=== PATIENT | male | born 1990 | race Caucasian/White ===

== ENCOUNTER 2020-02-26 09:46 | Inpatient (IN) | payer MEDICAID ==
[~2020-02-26] VITALS: Ht 167.6 cm; Wt 83.0 kg
[2020-02-26 10:51] LABS: ANION GAP 11.2 mmol/L (8-16); CALCIUM 9.8 mg/dL (8.5-10.1); CARBON DIOXIDE 29.5 mmol/L (21.0-32.0); CREATININE - SERUM 1.3 mg/dL (0.6-1.3); POTASSIUM - SERUM 4.7 mmol/L (3.5-5.1)
[2020-02-26 10:53] LABS: BASOPHILS 0.1 % (0-2); EOSINOPHILS 0.1 % (0-7); IMMATURE GRANULOCYTES 0.3 % (0-5); LYMPHOCYTES 7.9 % (15-50); MCH 29.3 pg (26.0-34.0); MCHC 33.3 g/dL (31.0-37.0); MCV 87.9 fL (80.0-100.0); MEAN PLATELET VOLUME 9.9 fL (7.4-10.4); MONOCYTES 9.5 % (2-11); NEUTROPHILS 82.1 % (40-80); PLATELET COUNT 230 10x3/uL (130-400); RDW 13.5 % (11.5-14.5); WBC 16.3 10x3/uL (4.8-10.8)
[2020-02-26 10:57] LABS: ALBUMIN 3.8 g/dL (3.4-5.0); BILIRUBIN - TOTAL 0.5 mg/dL (0.2-1.3); PROTEIN - SERUM 8.4 g/dL (6.4-8.2)
[2020-02-26 12:23] LABS: APTT 29.2 SECONDS (22.8-39.4); INR 0.99 (0.85-1.17); PROTIME 13.1 SECONDS (11.6-15.0)
[2020-02-26 12:31] LABS: CKMB 0.3 U/L (0.0-3.6); CREATINE KINASE 53 UL (21-232); TROPONIN-I < 0.017 ng/mL (0.000-0.060)
[2020-02-26 13:17] LABS: BACTERIA FEW /hpf (NEGATIVE); BILIRUBIN NEGATIVE (NEGATIVE); EPITHELIAL CELLS 0-5 /hpf (0-5); GLUCOSE 50 mg/dL (NEGATIVE); KETONE MODERATE mg/dL (NEGATIVE); NITRITE NEGATIVE (NEGATIVE); RED CELLS - URINE 0-5 /hpf (0-5); SPECIFIC GRAVITY 1.015 (1.005-1.020); UROBILINOGEN NORMAL (NORMAL); WHITE CELLS - URINE 0-5 /hpf (NEGATIVE)
--- NOTE | 2020-02-26 14:07 | NUR ---
PT ARRIVED VIA WHEELCHAIR. DENIES NEEDS OR PAIN AT THIS TIME. LEFT SIDE OF FACE IS SWOLLEN AND RED. ORIENTED TO ROOM. CALL LIGHT WITHIN REACH. BED IN LOWEST POSITION. WILL CONTINUE TO MONITOR.
[2020-02-26 15:55] VITALS: BP 131/73
[2020-02-26 15:59] VITALS: BP 131/73; BMI 29.6
--- NOTE | 2020-02-26 19:10 | NUR ---
BEDSIDE REPORT RECEIVED, PT CARE ASSUMED. INTRODUCED SELF AND WROTE NAME ON BOARD. PT LYING IN BED WITH EYES CLOSED, RR EVEN AND NONLABORED, NO S/S OF DISTRESS, AROUSES EASILY TO VOICE. C/O LEFT-SIDED FACE PAIN OF 7, ON A SCALE OF 0-10. DENIES ANY OTHER NEEDS AT THIS TIME. BED IN LOWEST, SR X2, CALL LIGHT WITHIN REACH. WILL CTM.
[2020-02-26 20:16] VITALS: BP 140/89
[2020-02-26 23:37] VITALS: BP 148/89
[2020-02-27 04:05] VITALS: BP 139/93
[2020-02-27 05:16] LABS: BASOPHILS 0.1 % (0-2); EOSINOPHILS 0.3 % (0-7); HEMATOCRIT 43.9 % (42.0-54.0); HEMOGLOBIN 14.7 g/dL (13.5-17.5); IMMATURE GRANULOCYTES 0.3 % (0-5); LYMPHOCYTES 11.5 % (15-50); MCH 29.3 pg (26.0-34.0); MCHC 33.5 g/dL (31.0-37.0); MCV 87.5 fL (80.0-100.0); MEAN PLATELET VOLUME 9.7 fL (7.4-10.4); MONOCYTES 10.9 % (2-11); NEUTROPHILS 76.9 % (40-80); PLATELET COUNT 188 10x3/uL (130-400); RBC 5.02 10x6/uL (4.20-6.10); RDW 13.5 % (11.5-14.5); WBC 13.6 10x3/uL (4.8-10.8)
[2020-02-27 05:34] LABS: UDS - AMPHET POSITIVE QUAL (NEGATIVE); UDS - BARB NEGATIVE QUAL (NEGATIVE); UDS - BENZO NEGATIVE QUAL (NEGATIVE); UDS - COCAINE NEGATIVE QUAL (NEGATIVE); UDS - OPIATE POSITIVE QUAL (NEGATIVE); UDS - PCP NEGATIVE QUAL (NEGATIVE); UDS - THC POSITIVE QUAL (NEGATIVE)
[2020-02-27 05:39] LABS: ALKALINE PHOSPHATASE 85 U/L (30-120); ALT (SGPT) 7 U/L (10-68); BILIRUBIN - TOTAL 0.32 mg/dL (0.2-1.3); CALC OSMOLALITY 265 mosm/kg (275-300); CALCIUM 8.8 mg/dL (8.5-10.1); CARBON DIOXIDE 25.6 mmol/L (21.0-32.0); CHLORIDE - SERUM 100 mmol/L (98-107); CREATININE - SERUM 0.8 mg/dL (0.6-1.3); GLUCOSE 127 mg/dL (74-106); MAGNESIUM - SERUM 1.9 mg/dL (1.8-2.4); POTASSIUM - SERUM 4.4 mmol/L (3.5-5.1); PROTEIN - SERUM 6.9 g/dL (6.4-8.2); SODIUM 132 mmol/L (136-145); UREA NITROGEN 9 mg/dL (7-18); eGFR NON AFRICAN AMERICAN > 90 mL/min (90-120)
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
[2020-02-27 09:40] VITALS: BP 147/88
[2020-02-27 10:25] VITALS: Ht 167.6 cm; Wt 83.0 kg
--- NOTE | 2020-02-27 11:23 | NUR ---
I have reviewed this patient and I concur with the Shift Assessment completed by the Licensed Practical Nurse today this shift.
--- NOTE | 2020-02-27 12:36 | NUR ---
PT AWAKE AND ORIETNED, LYING ON RIGHT SIDE IN BED. MASTERSON DME IN TO REQUEST MORE PAIN MEDICATION, INFOMRED PT IS NOT YET AVALIABLE D/T Q4HRP STATUS. NO OTHER COMPLAINTS OR CONCERNS AT THIS TIME. CL IN REACH,S RX2.
[2020-02-27 13:12] VITALS: BP 143/93
--- NOTE | 2020-02-27 19:15 | NUR ---
REPORT RECEIVED, PT CARE ASSUMED. WROTE NAME ON BOARD. PT LYING IN BED WITH EYES CLOSED, RR EVEN AND NONLABORED, NO S/S OF DISTRESS, AROUSES EASILY TO VOICE. DENIES ANY NEEDS AT THIS TIME. BED IN LOWEST, SR X2, CALL LIGHT WITHIN REACH. WILL CTM.
[2020-02-27 20:00] VITALS: BP 121/74
[2020-02-28] VITALS: BP 109/59
[2020-02-28 04:00] VITALS: BP 111/64
[2020-02-28 06:27] LABS: BASOPHILS 0.6 % (0-2); EOSINOPHILS 2.6 % (0-7); HEMATOCRIT 43.6 % (42.0-54.0); HEMOGLOBIN 14.2 g/dL (13.5-17.5); IMMATURE GRANULOCYTES 0.3 % (0-5); LYMPHOCYTES 29.9 % (15-50); MCH 28.7 pg (26.0-34.0); MCHC 32.6 g/dL (31.0-37.0); MCV 88.1 fL (80.0-100.0); MEAN PLATELET VOLUME 9.7 fL (7.4-10.4); MONOCYTES 13.4 % (2-11); NEUTROPHILS 53.2 % (40-80); PLATELET COUNT 210 10x3/uL (130-400); RBC 4.95 10x6/uL (4.20-6.10); RDW 13.3 % (11.5-14.5)
[2020-02-28 06:46] LABS: ALBUMIN 2.8 g/dL (3.4-5.0); ALKALINE PHOSPHATASE 76 U/L (30-120); CALCIUM 8.9 mg/dL (8.5-10.1); CARBON DIOXIDE 29.3 mmol/L (21.0-32.0); CHLORIDE - SERUM 101 mmol/L (98-107); CREATININE - SERUM 0.9 mg/dL (0.6-1.3); GLUCOSE 105 mg/dL (74-106); POTASSIUM - SERUM 4.5 mmol/L (3.5-5.1); PROTEIN - SERUM 6.8 g/dL (6.4-8.2); SODIUM 135 mmol/L (136-145); eGFR NON AFRICAN AMERICAN > 90 mL/min (90-120)
[2020-02-28 06:47] LABS: ALT (SGPT) 12 U/L (10-68); CALC OSMOLALITY 270 mosm/kg (275-300); UREA NITROGEN 15 mg/dL (7-18)
[2020-02-28 06:48] LABS: WBC 6.9 10x3/uL (4.8-10.8)
--- NOTE | 2020-02-28 07:38 | NUR ---
PT RESTING PEACEFULLY, EYES CLOSED, LYING ON RIGHT SIDE. BREATHS EVEN, REUGLAR, AND UNLABORED. NO SIGNS OR SYMPTOMS OF ACUTE DISTRESS NOTED A THIS TIME. CL IN REACH, SRX2.
[2020-02-28 08:45] VITALS: BP 103/63
--- NOTE | 2020-02-28 09:35 | NUR ---
PT ALERT AND ORIENTED, LYING IN BED PLAYING ON HIS PHONE. PT REQUESTS PAIN MEDS. FACE IS MARKEDLY LESS SWOLLEN TODAY AND PT STATES PAIN IS MODERATELY BETTER. CL IN REACH, SRX2.
[2020-02-28 12:16] VITALS: BP 115/63
--- NOTE | 2020-02-28 13:19 | NUR ---
PT AWAKE AND ORIENTED, LYING IN BED. REQUESTING A SHOWER, WILL ACCOMIDATE AFTER ABX. CL INR EACH, SRX, NO COMPLAINTS OR CONCERNS AT THIS TIME. ALL QUESTIONS ANSWERD TO THE BEST OF MY ABILITY.
--- NOTE | 2020-02-28 13:37 | NUR ---
I have reviewed this patient and I concur with the Shift Assessment completed by the Licensed Practical Nurse today this shift.
[2020-02-28] MEDS ORDERED: CLEOCIN HCL300 MG PO (14:31)
--- NOTE | 2020-02-28 15:37 | NUR ---
I/V OUT TIP INTACT, PT IS IN YANI SHOWER AT THIS TIME. PREVIOUSLY STATED THAT IF HE WAS UNABLE TO OBTAIN A RIDE, HE WOULD CALL A [facility]. CL INR EACH, SRX2.
--- NOTE | 2020-02-28 16:00 | MORECARE ---
CASE MANAGEMENT DISCHARGE SUMMARY PATIENT: FELIBERTO BROOKE UNIT: [id number] ADM DATE: 02/26/20 AGE: 29 : [birth year] SEX: M ROOM/BED: D.2139 AUTHOR: MEERA ANDERSON PHYSICIAN: REFERRING PHYSICIAN: DOC MEYER DO DATE OF SERVICE: 02/28/20 Discharge Plan Patient Name: FELIBERTO BROOKE [facility] [facility] 1990 Planned Disposition: Home Anticipated Discharge Date: 02/28/20 Discharge Date: Expected LOS: 2 Initial Reviewer: [email or web address] Initial Review Date: 02/28/2020 Generated: 02/28/20 5:00 pm DCPIA - Discharge Planning Initial Assessment Updated by [email or web address]: Georgina Cody on 02/28/20 3:58 pm * Is the patient Alert and Oriented? Yes * How many steps to enter\exit or inside your home? 2/0 * Pharmacy [facility] at [facility] * Preadmission Environment Home Alone * ADLs Independent * Equipment None * List name and contact numbers for known caregivers / representatives who currently or will assist patient after discharge: Felisa Murcia - mother - [phone] * Verbal permission to speak to the caregivers and representatives has been obtained from the patient. Yes * Community resources currently utilized None * Additional services required to return to the preadmission environment? No * Can the patient safely return to the preadmission environment? Yes * Has this patient been hospitalized within the prior 30 days at any hospital? No Patient Name: FELIBERTO BROOKE Page [id number] at 1600 All edits/amendments must be made on the electronic document DICTATION DATE: 02/28/20 1600 ASSOCIATE DIRECTOR FINANCE: SHARIFA 02/28/20 1600 RPT#: [id number] DC DATE: STATUS: ADM IN [facility] [address] [place] [address] END OF REPORT
--- NOTE | 2020-02-28 16:07 | MORECARE ---
CASE MANAGEMENT DISCHARGE SUMMARY PATIENT: FELIBERTO BROOKE UNIT: [id number] ADM DATE: 02/26/20 AGE: 29 : [birth year] SEX: M ROOM/BED: D.0140 AUTHOR: MEERA ANDERSON PHYSICIAN: REFERRING PHYSICIAN: DOC MEYER DO DATE OF SERVICE: 02/28/20 Discharge Plan Patient Name: FELIBERTO BROOKE Facility: [facility]:[place] : 1990 Planned Disposition: Home Anticipated Discharge Date: 02/28/20 Discharge Date: Expected LOS: 2 Initial Reviewer: [email or web address] Initial Review Date: 02/28/2020 Generated: 02/28/20 5:06 pm Comments DCP- Discharge Planning Updated by [email or web address]: Georgina Cody on 02/28/20 3:[address] Patient Name: FELIBERTO BROOKE Admission Status: ER Accout number: [id number] Admission Date: 02-26-2020 : 1990 Admission Diagnosis: Attending: DOC MEYER Current LOS: 2 Anticipated DC Date: 02-28-2020 Planned Disposition: Home Primary Insurance: MEDICAID [place] Discharge Planning Comments: CM met with patient to discuss discharge planning/needs. States he lives alone. States he has someone picking him up at 5PM. States he has already received a message that his prescription is ready for spanish moss picker and will get it on his way home. He is independent with all ADL's and IADL's. Denies needs. No needs identified. Home today. Prestressed Concrete Laborer: Georgina Cody DCPIA - Discharge Planning Initial Assessment Updated by [email or web address]: Georgina Cody on 02/28/20 3:58 pm * Is the patient Alert and Oriented? Yes * How many steps to enter\exit or inside your home? 2/0 * Pharmacy [facility] * Preadmission Environment Home Alone * ADLs Independent * Equipment None * List name and contact numbers for known caregivers / representatives who currently or will assist patient after discharge: Felisa price - [phone] * Verbal permission to speak to the caregivers and representatives has been obtained from the patient. Yes * Community resources currently utilized None * Additional services required to return to the preadmission environment? No * Can the patient safely return to the preadmission environment? Yes * Has this patient been hospitalized within the prior 30 days at any hospital? No Last DP export: 02/28/20 3:00 p Patient Name: FELIBERTO BROOKE Page [id number] at 1607 All edits/amendments must be made on the electronic document DICTATION DATE: 02/28/201605 STAFF PHYSICAL THERAPY ASSISTANT: SHARIFA 02/28/201605 RPT#: [id number] DC DATE: STATUS: ADM IN [facility] [address] [place] [address] END OF REPORT
--- NOTE | 2020-02-28 16:08 | NUR ---
PT ESCORTED OUT TO [facility], SELF PAY.
--- NOTE | 2020-02-29 08:03 | MORECARE ---
CASE MANAGEMENT DISCHARGE SUMMARY PATIENT: FELIBERTO BROOKE UNIT: [id number] ADM DATE: 02/26/20 AGE: 29 : [birth year] SEX: M ROOM/BED: D.2042 AUTHOR: MEERA ANDERSON PHYSICIAN: REFERRING PHYSICIAN: DOC MEYER DO DATE OF SERVICE: 02/29/20 Discharge Plan Patient Name: FELIBERTO BROOKE [facility]:[place] : 1990 Planned Disposition: Home Anticipated Discharge Date: 02/28/20 Discharge Date: 02/28/2020 Expected LOS: 2 Initial Reviewer: [email or web address] Initial Review Date: 02/28/2020 Generated: 02/29/20 9:02 am Comments DCP- Discharge Planning Updated by [email or web address]: Georgina Cody on 02/28/20 3:[address] Patient Name: FELIBERTO BROOKE Admission Status: ER Accout number: [id number] Admission Date: 02-26-2020 : 1990 Admission Diagnosis: Attending: DOC MEYER Current LOS: 2 Anticipated DC Date: 02-28-2020 Planned Disposition: Home Primary Insurance: MEDICAID [place] Discharge Planning Comments: CM met with patient to discuss discharge planning/needs. States he lives alone. States he has someone picking him up at 5PM. States he has already received a message that his prescription is ready for filler picker and will get it on his way home. He is independent with all ADL's and IADL's. Denies needs. No needs identified. Home today. Ship'S Surveyor: Georgina Cody DCPIA - Discharge Planning Initial Assessment Updated by [email or web address]: Georgina Cody on 02/28/20 3:58 pm * Is the patient Alert and Oriented? Yes * How many steps to enter\exit or inside your home? 2/0 * Pharmacy [facility] * Preadmission Environment Home Alone * ADLs Independent * Equipment None * List name and contact numbers for known caregivers / representatives who currently or will assist patient after discharge: Felisa price - [phone] * Verbal permission to speak to the caregivers and representatives has been obtained from the patient. Yes * Community resources currently utilized None * Additional services required to return to the preadmission environment? No * Can the patient safely return to the preadmission environment? Yes * Has this patient been hospitalized within the prior 30 days at any hospital? No Last DP export: 02/28/20 3:07 p Patient Name: FELIBERTO BROOKE Page 78517 at 0803 All edits/amendments must be made on the electronic document DICTATION DATE: 02/29/20801 FULL STACK ENGINEER: SHARIFA 02/29/20801 RPT#: [id number] DC DATE:02/28/20 STATUS: DIS IN [facility] [address] [place] [address] END OF REPORT
--- NOTE | 2020-02-29 08:58 | EC ---
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 Ao 126 cm/sec RVOT 69 cm/sec RA cm/sec PA 99 cm/sec AV Gradient Peak 6.3 mmHg AV Mean 4.1 mmHg AV Area 3.1 cm MV Gradient Peak 3.4 mmHg MV Mean 1.4 mmHg MV Area cm COMMENTS: Sales Account Specialist: Arcadio CORCORAN Percussion Teacher: 3 Dr. Felder TAPE# PACS Pericardial Effusion N DATE OF SERVICE: Adequate 2D, color flow imaging, spectral Doppler, and M-Mode. No LVH. LV internal dimension is normal. Wall motion is normal. EF is greater than or equal to 55%. Aortic valve is tricuspid. No evidence of stenosis by Doppler interrogation. Left atrium is normal. Mitral valve shows no prolapse. Trivial MR. Right-sided chambers are grossly normal. Trivial TR. No evidence of vegetation in all 4 cardiac valves. ECHOCARDIOGRAM REPORT [id number] FELIBERTO BROOKE TRANSINT:[id number] Voice Confirmation ID: [id number] DOCUMENT ID: [id number] DONAVON RODRIGUEZ MD at 0858 CC: [id number] DICTATION DATE: 02/28/20 1015 MARBLE POLISHER: 02/28/20 1354 DIS IN 02/28/20 [place] [id number] [place] [id number]
== END 2020-02-28 16:08 | disposition home or self-care (01) | DRG 603 ==
LOC: D.ER 09:46 → D.M2 13:10
PROVIDERS: Family Medicine; ADMIT Family Medicine; ATTEND Family Medicine
DX: L03.213 Periorbital cellulitis (principal); E87.1 Hypo-osmolality and hyponatremia; F17.203 Nicotine dependence unspecified, with withdrawal